=== PATIENT | male | born 1970 | race Caucasian/White ===

== ENCOUNTER 2017-06-16 14:07 | Inpatient (IN) ==
[2017-06-16] MEDS ORDERED: ONDANSETRON 4 MG/2 ML VIAL IV STA (16:18)
[2017-06-16] MEDS ORDERED: NITROGLYCERIN 2% OINT 1 INCH/GM PACK TOP STA (16:18)
[2017-06-16] MEDS ORDERED: ALUM/MAG/SIMETH/LIDO VISC 1:1 30 ML BOTTLE PO STA (16:18)
[2017-06-16] MEDS ORDERED: ASPIRIN 325 MG TABLET PO STA (16:18)
[2017-06-16] MEDS ORDERED: MORPHINE 4 MG/1 ML VIAL IV STA (16:18)
[2017-06-16 16:30] LABS: Basophils % 0.2 % (0.0-0.8); Hematocrit 46.2 VOL% (42.0-52.0); Hemoglobin 16.3 GM/DL (14.0-18.0); Immature Granulocytes % 0.7 %; Immature Granulocytes Absolute 0.09 #; Lymphocytes % 7.9 % (21.2-54.2); Mean Corpuscular HGB Conc 35.3 GM/DL (32-36); Mean Corpuscular Hemoglobin 30 PG (27-34); Mean Corpuscular Volume 83.5 FL (87-102); Mean Platelet Volume 9.1 FL (9.6-12.0); Monocytes # 0.7 10*3/uL (0.11-0.8); Monocytes % 5.7 % (1.7-12.7); Neutrophils # 10.5 10*3/uL (1.4-7.4); Neutrophils % 85.5 % (38.7-73.9); Platelet Count 228 T/CUMM (130-400); Red Blood Count 5.53 MC/CUMM (3.8-5.5); Red Cell Distribution Width 12.4 % (9.3-17.3); White Blood Count 12.3 T/CUMM (4-12)
[2017-06-16 16:39] LABS: INR 0.9
[2017-06-16 16:42] LABS: Albumin 3.9 G/DL (3.4-5.0); Bilirubin,Total 1.4 MG/DL (0.2-1.0); Calcium 9.1 MG/DL (8.5-10.1); Osmolality,Calculated 281.8 MOS/KG (273-304); Potassium 4.3 MMOL/L (3.5-5.1); Total Protein 7.4 G/DL (6.4-8.3)
[2017-06-16] MEDS ORDERED: ENOXAPARIN 100 MG/ML SYRINGE SUBCUT STA (17:12)
[2017-06-16] MEDS ORDERED: ONDANSETRON 4 MG/2 ML VIAL IV PRN (19:29)
[2017-06-16] MEDS ORDERED: MAGNESIUM SULF RIDER 2 GM in PREMIX 1 EACH IV PRN (19:29)
[2017-06-16] MEDS ORDERED: POTASSIUM CHLORIDE 20 MEQ TABLET PO PRN (19:29)
[2017-06-16] MEDS ORDERED: MAGNESIUM SULF RIDER 4 GM in PREMIX 1 EACH IV PRN (19:29)
[2017-06-16] MEDS ORDERED: predniSONE 10 MG TABLET PO PRN (19:29)
[2017-06-16] MEDS ORDERED: MORPHINE 4 MG/1 ML VIAL IV PRN (19:29)
[2017-06-16] MEDS: SODIUM CHLORIDE 0.9% 1,000 ML IV SCH (21:05)
[2017-06-16] MEDS: NITROGLYCERIN 2% OINT 1 INCH/GM PACK TOP SCH (21:18)
[2017-06-17] MEDS: NITROGLYCERIN 2% OINT 1 INCH/GM PACK TOP SCH ×3 (01:22→13:49)
[2017-06-17 05:02] LABS: Basophils % 0.3 % (0.0-0.8); Eosinophils # 0.1 10*3/uL (0.0-0.87); Eosinophils % 1.2 % (0.00-10.9); Hematocrit 41.1 VOL% (42.0-52.0); Hemoglobin 14.4 GM/DL (14.0-18.0); Immature Granulocytes % 0.9 %; Immature Granulocytes Absolute 0.08 #; Mean Corpuscular Hemoglobin 29 PG (27-34); Mean Corpuscular Volume 83.2 FL (87-102); Mean Platelet Volume 9.2 FL (9.6-12.0); Monocytes # 0.6 10*3/uL (0.11-0.8); Monocytes % 6.9 % (1.7-12.7); Neutrophils # 5.5 10*3/uL (1.4-7.4); Neutrophils % 58.7 % (38.7-73.9); Platelet Count 201 T/CUMM (130-400); Red Blood Count 4.94 MC/CUMM (3.8-5.5); Red Cell Distribution Width 12.6 % (9.3-17.3); White Blood Count 9.3 T/CUMM (4-12)
[2017-06-17 05:47] LABS: Albumin 3.2 G/DL (3.4-5.0); Bilirubin,Total 1.2 MG/DL (0.2-1.0); Calcium 8.1 MG/DL (8.5-10.1); Potassium 3.8 MMOL/L (3.5-5.1); Thyroid Stimulating Hormone 1.78 uIU/ml (0.358-3.74); Total Protein 5.7 G/DL (6.4-8.3); VLDL CHOLESTEROL 105.6 MG/DL
[2017-06-17] MEDS ORDERED: ENOXAPARIN 80 MG/0.8 ML SYRINGE SUBCUT SCH (06:00)
[2017-06-17 07:17] LABS: Apearance,Urine Slightly Hazy (Clear); Bacteria,Urine Occasional /HPF (Few); Bilirubin,Urine Negative (Negative); Blood, Urine Negative (Negative); Glucose,Urine (UA) Negative (Negative); Ketones,Urine Negative (Negative); Mucus,Urine Few /LPF (Occasional); Nitrite,Urine Negative (Negative); Protein,Urine Negative; RBC,Urine 3 /HPF (0-4); Squamous Epithelial Cell,Urine Occasional /HPF (0-10); Urine Color Yellow (Yellow); Urine Specific Gravity 1.026 (1.001-1.035); Urine Urobilinogen < 2.0 EU/DL (0.2-1.0); WBC,Urine 3 /HPF (0-6)
[2017-06-17 07:45] LABS: Barbiturates Screen,Urine Negative (Negative); Benzodiazepines Screen,Urine Negative (Negative); Cannabinoid Screen,Urine Negative (Negative); Opiate Screen,Urine Positive (Negative); Phencyclidine Screen,Urine Negative (Negative)
[2017-06-17] MEDS ORDERED: ASPIRIN EC 325 MG TABLET PO SCH (09:00)
[2017-06-17] MEDS ORDERED: POTASSIUM CHLORIDE RIDER 10 MEQ in PREMIX 1 EACH IV PRN (09:42)
[2017-06-17] MEDS ORDERED: diphenhydrAMINE CAP 25 MG CAPSULE PO ONE (09:42)
[2017-06-17] MEDS ORDERED: DIAZEPAM 5 MG TABLET PO ONE (09:42)
[2017-06-17] MEDS ORDERED: MAGNESIUM SULF RIDER 2 GM in PREMIX 1 EACH IV PRN (09:42)
[2017-06-17] MEDS ORDERED: HEPARIN/NACL 0.9% 2 UNITS/ML 1,000 ML IV ONE (10:09)
[2017-06-17] MEDS: SODIUM CHLORIDE 0.9% 1,000 ML IV SCH (10:22)
[2017-06-17] MEDS: PANTOPRAZOLE 40 MG TABLET PO SCH (10:22)
[2017-06-17] MEDS ORDERED: fentaNYL 100 MCG/2 ML VIAL ONE (10:34)
[2017-06-17] MEDS ORDERED: MIDAZOLAM 2 MG/2 ML VIAL ONE ×2 (10:34→10:46)
[2017-06-17] MEDS ORDERED: EPTIFIBATIDE 20,000 MCG/10 ML VIAL ONE ×2 (11:02→11:05)
[2017-06-17] MEDS ORDERED: EPTIFIBATIDE 75 MG/100 ML BOTTLE IV ONE (11:02)
[2017-06-17] MEDS ORDERED: HEPARIN/NACL 0.9% 2 UNITS/ML 500 ML IV ONE (11:12)
[2017-06-17] MEDS ORDERED: TICAGRELOR 90 MG TABLET ONE (11:31)
[2017-06-17] MEDS ORDERED: NITROGLYCERIN SL 0.4 MG TABLET SL PRN (12:27)
[2017-06-17 14:18] LABS: Troponin I Only 0.074 NG/ML (0.00-0.045)
[2017-06-17 20:46] LABS: CKMB % 5.7 %
[2017-06-17 20:49] LABS: Troponin I Only 0.905 NG/ML (0.00-0.045)
[2017-06-17] MEDS ORDERED: ROSUVASTATIN 20 MG TABLET PO SCH (21:00)
[2017-06-17] MEDS: TICAGRELOR 90 MG TABLET PO SCH (21:31)
[2017-06-18 04:58] LABS: Basophils # 0.1 10*3/uL (0.0-0.2); Basophils % 0.5 % (0.0-0.8); Eosinophils # 0.2 10*3/uL (0.0-0.87); Eosinophils % 1.6 % (0.00-10.9); Hematocrit 42.1 VOL% (42.0-52.0); Hemoglobin 15.2 GM/DL (14.0-18.0); Immature Granulocytes % 0.8 %; Immature Granulocytes Absolute 0.08 #; Lymphocytes % 20.2 % (21.2-54.2); Mean Corpuscular HGB Conc 36.1 GM/DL (32-36); Mean Corpuscular Hemoglobin 30 PG (27-34); Mean Corpuscular Volume 81.6 FL (87-102); Mean Platelet Volume 9.1 FL (9.6-12.0); Monocytes # 0.8 10*3/uL (0.11-0.8); Monocytes % 8.2 % (1.7-12.7); Neutrophils # 6.9 10*3/uL (1.4-7.4); Neutrophils % 68.7 % (38.7-73.9); Platelet Count 186 T/CUMM (130-400); Red Blood Count 5.16 MC/CUMM (3.8-5.5); Red Cell Distribution Width 12.2 % (9.3-17.3)
[2017-06-18 05:27] LABS: Calcium 8.3 MG/DL (8.5-10.1); Osmolality,Calculated 279.4 MOS/KG (273-304)
[2017-06-18 05:34] LABS: CKMB % 6.8 %
[2017-06-18 05:40] LABS: Troponin I Only 3.19 NG/ML (0.00-0.045)
[2017-06-18] MEDS ORDERED: ENOXAPARIN 40 MG/0.4 ML SYRINGE SUBCUT SCH (06:28)
[2017-06-18] MEDS: SODIUM CHLORIDE 0.9% 1,000 ML IV SCH (08:05)
[2017-06-18 08:43] VITALS: BP 142/83
[2017-06-18] MEDS: PANTOPRAZOLE 40 MG TABLET PO SCH (08:54)
[2017-06-18] MEDS: TICAGRELOR 90 MG TABLET PO SCH (08:54)
[2017-06-18] MEDS ORDERED: ASPIRIN EC 81 MG TABLET PO SCH (09:00)
== END 2017-06-18 12:05 | disposition home or self-care (01) | DRG 247 ==
LOC: N.ED 14:07 → N.EDINP 17:31 → N.TELES 18:11
PROVIDERS: ADMIT Internal Medicine Cardiovascular Disease; ATTEND Internal Medicine Cardiovascular Disease
PROC: CLCCHCL (ICD-10-PCS; 2017-06-17 11:15)

== ENCOUNTER 2021-11-18 10:14 | Observation (INO) ==
[2021-11-18] MEDS ORDERED: CALCIUM CARBONATE CHEW 500 MG TABLET PO PRN (10:25)
[2021-11-18] MEDS ORDERED: MORPHINE 2 MG/1 ML SYRINGE IV PRN (10:25)
[2021-11-18] MEDS ORDERED: ACETAMINOPHEN 325 MG TABLET PO PRN (10:25)
[2021-11-18] MEDS ORDERED: SIMETHICONE CHEW 125 MG TABLET PO PRN (10:25)
[2021-11-18] MEDS ORDERED: LACTULOSE 20 GM/30 ML UDCUP PO PRN (10:25)
[2021-11-18] MEDS ORDERED: ONDANSETRON 4 MG/2 ML VIAL IV PRN (10:25)
[2021-11-18] MEDS ORDERED: ALUMINUM/MAGNES/SIMETH MAX STR 30 ML UDCUP PO PRN (10:25)
[2021-11-18] MEDS ORDERED: ZALEPLON 5 MG CAPSULE PO PRN (10:25)
[2021-11-18] MEDS ORDERED: BISACODYL 5 MG TABLET PO PRN (10:25)
[2021-11-18 13:20] LABS: Basophils # 0.1 10*3/uL (0.0-0.2); Basophils % 0.9 % (0.0-0.8); Eosinophils # 0.2 10*3/uL (0.0-0.87); Eosinophils % 2.7 % (0.00-10.9); Hematocrit 45.1 VOL% (42.0-52.0); Hemoglobin 15.4 GM/DL (14.0-18.0); Immature Granulocytes % 1.1 %; Lymphocytes # 2.4 10*3/uL (1.4-4.0); Lymphocytes % 27.1 % (21.2-54.2); Mean Corpuscular HGB Conc 34.1 GM/DL (32-36); Mean Corpuscular Volume 81.4 FL (87-102); Mean Platelet Volume 8.6 FL (9.6-12.0); Monocytes # 0.5 10*3/uL (0.11-0.8); Neutrophils % 62.2 % (38.7-73.9); Platelet Count 245 T/CUMM (130-400); Red Blood Count 5.54 MC/CUMM (3.8-5.5); Red Cell Distribution Width 12.7 % (9.3-17.3)
[2021-11-18 13:57] LABS: Thyroid Stimulating Hormone 1.4 uIU/ml (0.358-3.74)
[2021-11-18] MEDS ORDERED: NITROGLYCERIN SL 0.4 MG TABLET SL PRN (13:59)
[2021-11-18] MEDS ORDERED: predniSONE 10 MG TABLET PO PRN (13:59)
[2021-11-18 14:00] LABS: Albumin 3.5 G/DL (3.4-5.0); Bilirubin,Total 1.1 MG/DL (0.20-1.00); Calcium 8.9 MG/DL (8.5-10.1); Osmolality,Calculated 281.5 MOS/KG (273-304); Potassium 3.6 MMOL/L (3.5-5.1)
[2021-11-18] MEDS ORDERED: ENOXAPARIN 80 MG/0.8 ML SYRINGE SUBCUT ONE (14:00)
[2021-11-18] MEDS ORDERED: hydrALAZINE 20 MG/1 ML VIAL IV PRN (14:02)
[2021-11-18 16:14] LABS: Bilirubin,Urine Negative (Negative); Blood, Urine Small mg/dL (Negative); Glucose,Urine (UA) Negative (Negative); Ketones,Urine Negative (Negative); Mucus,Urine Occasional /LPF (Occasional); Nitrite,Urine Negative (Negative); Protein,Urine Negative (Negative); RBC,Urine 6 /HPF (0-4); Squamous Epithelial Cell,Urine Occasional /HPF (0-10); Urine Appearance Clear (Clear); Urine Color Yellow (Yellow)
[2021-11-18] MEDS: NITROGLYCERIN 2% OINT 1 INCH/GM PACK TOP SCH ×2 (18:13→23:30)
[2021-11-19 05:23] LABS: Basophils # 0.1 10*3/uL (0.0-0.2); Basophils % 0.7 % (0.0-0.8); Eosinophils # 0.3 10*3/uL (0.0-0.87); Hemoglobin 14.6 GM/DL (14.0-18.0); Lymphocytes # 2.4 10*3/uL (1.4-4.0); Lymphocytes % 23.3 % (21.2-54.2); Mean Corpuscular HGB Conc 34.8 GM/DL (32-36); Mean Corpuscular Volume 82.4 FL (87-102); Mean Platelet Volume 8.7 FL (9.6-12.0); Monocytes # 0.7 10*3/uL (0.11-0.8); Monocytes % 7.2 % (1.7-12.7); Neutrophils % 64.8 % (38.7-73.9); Platelet Count 211 T/CUMM (130-400); Red Cell Distribution Width 12.8 % (9.3-17.3); White Blood Count 10.2 T/CUMM (4-12)
[2021-11-19 05:47] LABS: Calcium 8.8 MG/DL (8.5-10.1); Osmolality,Calculated 282.4 MOS/KG (273-304); Potassium 3.7 MMOL/L (3.5-5.1); Risk Ratio 5.43
[2021-11-19] MEDS: NITROGLYCERIN 2% OINT 1 INCH/GM PACK TOP SCH ×2 (06:10→12:48)
[2021-11-19] MEDS ORDERED: SODIUM CHLORIDE 0.9% 1,000 ML IV SCH (08:00)
[2021-11-19] MEDS ORDERED: DIAZEPAM 5 MG TABLET PO ONE (09:00)
[2021-11-19] MEDS ORDERED: diphenhydrAMINE CAP 25 MG CAPSULE PO ONE (09:00)
[2021-11-19] MEDS ORDERED: ASPIRIN EC 81 MG TABLET PO SCH (09:00)
[2021-11-19] MEDS: CLOPIDOGREL 75 MG TABLET PO SCH (09:06)
[2021-11-19] MEDS: OLMESARTAN 20 MG TABLET PO SCH (09:06)
[2021-11-19] MEDS: PANTOPRAZOLE 40 MG TABLET PO SCH (09:06)
[2021-11-19] MEDS: NEBIVOLOL 5 MG TABLET PO SCH (09:06)
[2021-11-19] MEDS ORDERED: predniSONE 20 MG TABLET PO ONE (11:00)
[2021-11-19] MEDS ORDERED: HEPARIN/NACL 0.9% 2 UNITS/ML 2,000 UNIT/1,000 ML BAG IV ONE (12:32)
[2021-11-19] MEDS ORDERED: MIDAZOLAM 2 MG/2 ML VIAL ONE ×3 (13:02→14:19)
[2021-11-19] MEDS ORDERED: fentaNYL 100 MCG/2 ML VIAL ONE ×2 (13:02→14:17)
[2021-11-19] MEDS ORDERED: BIVALIRUDIN 250 MG VIAL IV ONE (13:38)
[2021-11-19] MEDS ORDERED: CLOPIDOGREL 300 MG TABLET PO ONE ×2 (14:56→19:00)
[2021-11-20 04:43] LABS: Basophils % 0.3 % (0.0-0.8); Eosinophils # 0.1 10*3/uL (0.0-0.87); Eosinophils % 0.6 % (0.00-10.9); Hemoglobin 15.3 GM/DL (14.0-18.0); Immature Granulocytes % 0.9 %; Immature Granulocytes Absolute 0.11 #; Lymphocytes # 1.8 10*3/uL (1.4-4.0); Lymphocytes % 13.8 % (21.2-54.2); Mean Corpuscular HGB Conc 34.8 GM/DL (32-36); Mean Platelet Volume 8.6 FL (9.6-12.0); Monocytes # 0.7 10*3/uL (0.11-0.8); Monocytes % 5.2 % (1.7-12.7); Neutrophils % 79.2 % (38.7-73.9); Platelet Count 252 T/CUMM (130-400); Red Blood Count 5.43 MC/CUMM (3.8-5.5); Red Cell Distribution Width 12.9 % (9.3-17.3); White Blood Count 12.8 T/CUMM (4-12)
[2021-11-20 05:08] LABS: Calcium 8.6 MG/DL (8.5-10.1); Osmolality,Calculated 281.8 MOS/KG (273-304); Potassium 4.2 MMOL/L (3.5-5.1)
[2021-11-20] MEDS ORDERED: ASPIRIN 325 MG TABLET PO SCH (09:00)
[2021-11-20] MEDS ORDERED: ENOXAPARIN 40 MG/0.4 ML SYRINGE SUBCUT SCH (09:00)
[2021-11-20] MEDS: PANTOPRAZOLE 40 MG TABLET PO SCH (09:36)
[2021-11-20] MEDS: OLMESARTAN 20 MG TABLET PO SCH (09:36)
[2021-11-20] MEDS: NEBIVOLOL 5 MG TABLET PO SCH (09:36)
[2021-11-20] MEDS: CLOPIDOGREL 75 MG TABLET PO SCH (09:36)
[2021-11-20 10:27] VITALS: BP 121/99
== END 2021-11-20 10:15 | disposition home or self-care (01) ==
LOC: N.TELES
PROVIDERS: ADMIT Internal Medicine Cardiovascular Disease; ATTEND Internal Medicine Cardiovascular Disease
PROC: CLCCHCL (ICD-10-PCS; 2021-11-19 14:45)